=== PATIENT | female | born 1980 | race Two or more races ===

== ENCOUNTER → 2023-05-22 17:41 | Emergency (ER) | payer OTHER ==
[~2023-05-22] VITALS: Ht 165.1 cm; Wt 100.0 kg
[2023-05-22 18:34] VITALS: BP 144/92; PULSE 77; RESP 16; O2SAT 98
== END | disposition left against medical advice (07) ==
LOC: ER 17:41
DX: S09.8XXA Other specified injuries of head, initial encounter (principal); Z53.21 Procedure and treatment not carried out due to patient leaving prior to being seen by health care provider; W22.8XXA Striking against or struck by other objects, initial encounter; Y93.89 Activity, other specified; Y92.89 Other specified places as the place of occurrence of the external cause; Y99.8 Other external cause status
CPT/HCPCS: 70486